=== PATIENT | female | born 1995 | race African-American/Black ===

== ENCOUNTER 2016-07-03 20:31 | Emergency (ER) | payer OTHER ==
[~2016-07-03] VITALS: Ht 157.5 cm; Wt 106.1 kg
[~2016-07-03 20:31] MED LIST: ACET325T9 PO; ALBU8.5H6 IH; AMOX1TAB61 PO; ERYT1OIN6 OD; FLUT10.6 IH; METH-37 PO; MONT10TA6 PO; NITR100C PO; PRED20TA PO; PREN1TAB99 PO; PROAIR HFA8.5 GM INH; TRAM-29 PO
[2016-07-03 20:58] VITALS: BP 166/107
[2016-07-03] MEDS ORDERED: CYCL10TA2 PO (21:11)
--- NOTE | 2016-07-03 21:12 | PHYS DOC ---
Past Medical History Past Medical History: Asthma Additional Past Medical Histor: carpal tunnel Past Surgical History: Other Additional Past Surgical Histo: RIGHT ANKLE SURGERY - FRACTURE 2013 Alcohol Use: None Drug Use: None Adult General Chief Complaint Chief Complaint: MUSCLE SPASM/CR[facility] HPI Patient is a 21 year old female presents emergency department stating that she' s been having back pain on and off for the last 3 years. She states that over the weekend she was lifting and moving things when she developed increased upper back pain or lower back pain. She denies any urinary frequency urgency pain with urination. She denies any numbness or tingling into her lower extremities. Patient states she is taken Aleve on Friday with minimal relief. Patient also states her menstrual periods started on Friday. She denies any chances of being . Patient denies any injury or trauma to her back. Review of Systems Review of Systems Constitutional: Denies fever or chills [] Eyes: Denies change in visual acuity, redness, or eye pain [] HENT: Denies nasal congestion or sore throat [] Respiratory: Denies cough or shortness of breath [] Cardiovascular: No additional information not addressed in HPI [] GI: Denies abdominal pain, nausea, vomiting, bloody stools or diarrhea [] : Denies dysuria or hematuria [] Musculoskeletal: back pain denies joint pain [] Integument: Denies rash or skin lesions [] Neurologic: Denies headache, focal weakness or sensory changes [] Allergies Allergies Allergies Coded Allergies Type Severity Reaction Last Updated Verified acetaminophen Allergy Intermediate Hives 09/20/14 Yes Physical Exam Physical Exam Constitutional: Well developed, well nourished, no acute distress, non-toxic appearance. [] HENT: Normocephalic, atraumatic, bilateral external ears normal, oropharynx moist, no oral exudates, nose normal. [] Eyes: PERRLA, EOMI, conjunctiva normal, no discharge. [] Neck: Normal range of motion, no tenderness, supple, no stridor. [] Cardiovascular:Heart rate regular rhythm, no murmur [] Lungs & Thorax: Bilateral breath sounds clear to auscultation [] Skin: Warm, dry, no erythema, no rash. [] Back: No cervical spine, thoracic spine or lumbar spine tenderness, no deformities no step-offs or crepitus noted. Patient did have tenderness in the bilateral upper back area in bilateral lower back area. Extremities: No tenderness, no cyanosis, no clubbing, ROM intact, no edema. Patient with equal strength to bilateral lower extremities. Neurologic: Alert and oriented X 3, normal motor function, normal sensory function, no focal deficits noted. Patient able to ambulate with a good steady gait Psychologic: Affect normal, judgement normal, mood normal. [] Current Patient Data Vital Signs Vital Signs Date Time Temp Pulse Resp B/P Pulse Ox O2 Delivery O2 Flow Rate FiO2 07/03/16 20:58 98.0 65 20 97 Room Air 98.0 EKG EKG [] Radiology/Procedures Radiology/Procedures [] Course & Med Decision Making Course & Med Decision Making Pertinent Labs and Imaging studies reviewed. (See chart for details) Patient will be discharged home in stable condition. Recommended Aleve 1 tablet twice a day for pain and discomfort. She'll be provided with Flexeril which she was instructed to not take if she needs to be alert and oriented. Also recommended ice packs on 20 minutes off 20 minutes several times a day. She is unable to tolerate ice she may use warm moist packs. Also recommended following up to primary care physician next 7-10 days. Signs symptoms to return back to emergency department as been provided. [] Dragon Disclaimer Dragon Disclaimer This electronic medical record was generated, in whole or in part, using a voice recognition dictation system. Departure Departure Impression: Primary Impression: Back spasm Disposition: 01 HOME, SELF-CARE Condition: STABLE Referrals: NO PCP (PCP) Patient Instructions: Back Pain, Adult, [id number] Additional Instructions: Activity as tolerated. Aleve 1 tablet twice a day for pain and discomfort. They sure you when taking this medication to prevent upset stomach. If he did develop an upset stomach stopped taking. Flexeril will cause drowsiness do not take any be alert and oriented. Ice packs on 20 minutes off 20 minutes several times a day. Unable to tolerate ice she may use warm moist packs. Follow-up through primary care physician next 7-10 days. Return back to emergency department for signs and symptoms of become worse. Scripts Cyclobenzaprine Hcl 10 Mg [id number] Mg PO TID #20 TAB Prov:JAIMEE PROCTOR NP 07/03/16 JAIMEE PROCTOR NP Jul 03, 2016 21:12
== END 2016-07-03 21:22 | disposition home or self-care (01) ==
LOC: ER 20:31
DX: M62.830 Muscle spasm of back (principal); J45.909 Unspecified asthma, uncomplicated; G56.00 Carpal tunnel syndrome, unspecified upper limb; Z88.6 Allergy status to analgesic agent
CPT/HCPCS: 99283

== ENCOUNTER 2016-07-27 03:45 | Emergency (ER) | payer OTHER ==
[~2016-07-27] VITALS: Ht 154.9 cm; Wt 104.3 kg
[~2016-07-27 03:45] MED LIST changes: +CYCL10TA2 PO
[2016-07-27 04:05] VITALS: BP 142/96
[2016-07-27] MEDS ORDERED: CETIRIZINE HCL 10 MG TABLET. PO ONE (04:45)
[2016-07-27] MEDS ORDERED: BENZONATATE 100 MG CAPSULE. PO ONE (04:45)
--- NOTE | 2016-07-27 05:06 | PHYS DOC ---
Past Medical History Past Medical History: Asthma Additional Past Medical Histor: carpal tunnel Past Surgical History: Other Additional Past Surgical Histo: RIGHT ANKLE SURGERY - FRACTURE 2013 Alcohol Use: None Drug Use: None Adult General Chief Complaint Chief Complaint: FLU SYMPTOM HPI HPI Patient is a 21 year old female who presents with cough and congestion. Patient reports she started feeling a little achy on Friday morning and by Friday was coughing up green phlegm. She also reports having chills. She has not taken anything for symptoms. No other acute complaints. Review of Systems Review of Systems Constitutional: Chills Respiratory: Productive cough. Denies shortness of breath Cardiovascular: Denies chest pain GI: Denies abdominal pain, nausea, vomiting, or diarrhea Musculoskeletal: Body aches Neurologic: Denies headache, focal weakness or sensory changes Current Medications Current Medications Current Medications Medications (Trade) Dose Ordered Sig/Juani Start Time Stop Time Status Last Admin Dose Admin Benzonatate (Tessalon Perle) 100 mg 1X ONCE 07/27/16 04:45 07/27/16 04:55 DC 07/27/16 04:50 100 MG Cetirizine HCl (Zyrtec) 10 mg 1X ONCE 07/27/16 04:45 07/27/16 04:55 DC 07/27/16 04:50 10 MG Allergies Allergies Allergies Coded Allergies Type Severity Reaction Last Updated Verified acetaminophen Allergy Intermediate Hives 09/20/14 Yes Physical Exam Physical Exam Constitutional: Well developed, well nourished, no acute distress, non-toxic appearance. [] HENT: Normocephalic, atraumatic, bilateral external ears normal, oropharynx moist, no oral exudates, nose normal. [] Eyes: PERRLA, EOMI, conjunctiva normal, no discharge. [] Neck: Normal range of motion, no tenderness, supple, no stridor. [] Cardiovascular:Heart rate regular rhythm, no murmur [] Lungs & Thorax: Bilateral breath sounds clear to auscultation [] Abdomen: Bowel sounds normal, soft, no tenderness, no masses, no pulsatile masses. [] Skin: Warm, dry, no erythema, no rash. [] Back: No tenderness, no CVA tenderness. [] Extremities: No tenderness, no cyanosis, no clubbing, ROM intact, no edema. [] Neurologic: Alert and oriented X 3, normal motor function, normal sensory function, no focal deficits noted. [] Psychologic: Affect normal, judgement normal, mood normal. [] Current Patient Data Vital Signs Vital Signs Date Time Temp Pulse Resp B/P Pulse Ox O2 Delivery O2 Flow Rate FiO2 07/27/16 04:05 98.1 91 20 99 Room Air 98.1 EKG EKG [] Radiology/Procedures Radiology/Procedures CXR (my read): No acute abnormality Course & Med Decision Making Course & Med Decision Making Pertinent Labs and Imaging studies reviewed. (See chart for details) Patient is 21-year-old female who presents with chills, aches, productive cough. Likely viral illness versus allergies. Dose of Tessalon as well as cetirizine ordered for relief of symptoms. Chest x-ray okay per my read. Discussed results with patient. Will discharge home with instructions for follow -up and return precautions. Dragon Disclaimer Dragon Disclaimer This electronic medical record was generated, in whole or in part, using a voice recognition dictation system. Departure Departure Impression: Primary Impression: Productive cough Disposition: 01 HOME, SELF-CARE Condition: STABLE Referrals: ROCÍO XIONG MD (PCP) Patient Instructions: Allergies, Generic, Cough, Adult, Upper Respiratory Infection, Adult Additional Instructions: Thank you for allowing us to provide care today in the Emergency Department. Take the provided medication as directed. Schedule a follow up appointment with your primary care doctor. Return promptly to the Emergency Department if you develop any new or concerning symptoms. Scripts Cetirizine Hcl 10 Mg [id number] Mg PO DAILY #14 Prov:STEPHEN BLACKWELL MD 07/27/16 Benzonatate (Tessalon Perle)100 Mg [id number] Mg PO TID PRN COUGH #15 CAP Prov:STEPHEN BLACKWELL MD 07/27/16 STEPHEN BLACKWELL MD Jul 27, 2016 05:06
[2016-07-27] MEDS ORDERED: CETI10TA16 PO (05:11)
[2016-07-27] MEDS ORDERED: BENZ100C PO (05:11)
--- NOTE | 2016-07-27 07:37 | RAD ---
EXAM: Chest, 2 views. HISTORY: Cough. COMPARISON: 03/01/2016. FINDINGS: Frontal and lateral views of the chest are obtained. There is no infiltrate, effusion or pneumothorax. The heart is normal in size. IMPRESSION: No acute pulmonary finding.
== END 2016-07-27 05:20 | disposition home or self-care (01) ==
LOC: ER 03:45
DX: R05 Cough (principal); R09.81 Nasal congestion; R68.83 Chills (without fever); J45.909 Unspecified asthma, uncomplicated; G56.00 Carpal tunnel syndrome, unspecified upper limb; Z88.6 Allergy status to analgesic agent
CPT/HCPCS: 71020; 99284

== ENCOUNTER 2016-09-23 11:07 | Emergency (ER) | payer OTHER ==
[~2016-09-23 11:07] MED LIST changes: +BENZ100C PO; +CETI10TA16 PO
--- NOTE | 2016-09-23 13:25 | PHYS DOC ---
Past Medical History Past Medical History: Asthma Additional Past Medical Histor: carpal tunnel Past Surgical History: Other Additional Past Surgical Histo: RIGHT ANKLE SURGERY - FRACTURE 2013 Alcohol Use: None Drug Use: None Adult General Chief Complaint Chief Complaint: ABDOMINAL PAIN HPI HPI Patient is a 21 year old female who presents with with rectal bleeding and generalized mild abdominal pain for the past couple days. Patient states for the past 2 months she's had intermittent rectal bleeding and has followed up with her PCP twice as has been put on medication for ulcers. Patient denies any chest pain or shortness of breath. Findings: Mild generalized abdominal tenderness with bowel sounds are normal for quadrants and soft Patient refuses rectal exam ED course: Patient was seen and evaluated in emergency room, CBC CMP, lipase, UA, urine , CT of abdomen and pelvis with contrast ordered 1514: Exam result explained with the patient who states she is ready go home and feels much better. Patient still denied rectal exam. Recommend patient follow PCP for upper and lower GI scope and return if symptoms get worse. Pertinent findings: Hemoglobin 12 CT scan abdomen and pelvis no acute disease MDM: After reviewing the chart, CC/HPI/PMH, physical exam, lab results, radiological results, I do not be the patient has intra-abdominal emergency or urgent further workup and admission at this time. I do not be the patient has significant rectal bleed warranting emergent blood transfusion. I recommended the patient follow up with her PCP for an upper or lower GI scope. Recommended the bleeding gets worse to return to emergency room. Patient is stable to be discharged and patient is comfortable being discharged home. Additional verbal discharge instructions were provided to the patient and that if symptoms get worse or any new symptoms arise that are worrisome to the patient she is to return to the emergency room immediately Review of Systems Review of Systems Constitutional: Denies fever or chills [] Eyes: Denies change in visual acuity, redness, or eye pain [] HENT: Denies nasal congestion or sore throat [] Respiratory: Denies cough or shortness of breath [] Cardiovascular: No additional information not addressed in HPI [] GI: Rectal bleeding [] : Denies dysuria or hematuria [] Musculoskeletal: Denies back pain or joint pain [] Integument: Denies rash or skin lesions [] Neurologic: Denies headache, focal weakness or sensory changes [] Endocrine: Denies polyuria or polydipsia [] Current Medications Current Medications Current Medications Medications (Trade) Dose Ordered Sig/Juani Start Time Stop Time Status Last Admin Dose Admin Info (Do NOT chart on this entry -- for MONITORING) 1 each PRN DAILY PRN 09/23/16 13:45 09/25/16 13:44 Iohexol (Omnipaque 300 Mg/ml) 75 ml 1X ONCE 09/23/16 13:30 09/23/16 13:31 DC 09/23/16 13:58 75 ML Allergies Allergies Allergies Coded Allergies Type Severity Reaction Last Updated Verified acetaminophen Allergy Intermediate Hives 09/20/14 Yes Physical Exam Physical Exam Constitutional: Well developed, well nourished, no acute distress, non-toxic appearance. [] HENT: Normocephalic, atraumatic, bilateral external ears normal, oropharynx moist, no oral exudates, nose normal. [] Eyes: PERRLA, EOMI, conjunctiva normal, no discharge. [] Neck: Normal range of motion, supple, no stridor. [] Cardiovascular:Heart rate regular rhythm, no murmur [] Lungs & Thorax: Bilateral breath sounds clear to auscultation [] Abdomen: Bowel sounds normal, soft, mild generalized tenderness, no masses, no pulsatile masses. [] Skin: Warm, dry, no erythema, no rash. [] Back: No tenderness, no CVA tenderness. [] Extremities: No tenderness, no cyanosis, no clubbing, ROM intact, no edema. [] Neurologic: Alert and oriented X 3, normal motor function, normal sensory function, no focal deficits noted. [] Psychologic: Affect normal, judgement normal, mood normal. [] Current Patient Data Vital Signs Vital Signs Date Time Temp Pulse Resp B/P (MAP) Pulse Ox O2 Delivery O2 Flow Rate FiO2 09/23/16 11:24 97.9 110 16 98 Room Air 97.9 Lab Values Laboratory Tests Test 09/23/16 12:37 09/23/16 13:25 POC Urine HCG, Qualitative Hcg negative (Negative) White Blood Count 7.8 x10^3/uL (4.0-11.0) Red Blood Count 4.36 x10^6/uL (3.50-5.40) Hemoglobin 12.1 g/dL (12.0-15.5) Hematocrit 36.6 % (36.0-47.0) Mean Corpuscular Volume 84 fL (79-100) Mean Corpuscular Hemoglobin 28 pg (25-35) Mean Corpuscular Hemoglobin Concent 33 g/dL (31-37) Red Cell Distribution Width 15.4 % (11.5-14.5) H Platelet Count 272 x10^3/uL (140-400) Neutrophils (%) (Auto) 69 % (31-73) Lymphocytes (%) (Auto) 21 % (24-48) L Monocytes (%) (Auto) 8 % (0-9) Eosinophils (%) (Auto) 1 % (0-3) Basophils (%) (Auto) 1 % (0-3) Neutrophils # (Auto) 5.4 x10^3uL (1.8-7.7) Lymphocytes # (Auto) 1.6 x10^3/uL (1.0-4.8) Monocytes # (Auto) 0.6 x10^3/uL (0.0-1.1) Eosinophils # (Auto) 0.1 x10^3/uL (0.0-0.7) Basophils # (Auto) 0.1 x10^3/uL (0.0-0.2) Urine Collection Type Unknown Urine Color Yellow Urine Clarity Clear Urine pH 6.0 Urine Specific [place] 1.025 Urine Protein Negative mg/dL (NEG-TRACE) Urine Glucose (UA) Negative mg/dL (NEG) Urine Ketones (Stick) Negative mg/dL (NEG) Urine Blood Small (NEG) Urine Nitrite Negative (NEG) Urine Bilirubin Negative (NEG) Urine Urobilinogen Dipstick 0.2 mg/dL (0.2 mg/dL) Urine Leukocyte Esterase Small (NEG) Urine RBC 0 /HPF (0-2) Urine WBC 1-4 /HPF (0-4) Urine Squamous Epithelial Cells Mod /LPF Urine Bacteria Few /HPF (0-FEW) Urine Mucus Mod /LPF Sodium Level 145 mmol/L (136-145) Potassium Level 3.9 mmol/L (3.5-5.1) Chloride Level 108 mmol/L (98-107) H Carbon Dioxide Level 29 mmol/L (21-32) Anion Gap 8 (6-14) Blood Urea Nitrogen 9 mg/dL (7-20) Creatinine 0.8 mg/dL (0.6-1.0) Estimated GFR (Cockcroft-Gault) 107.6 BUN/Creatinine Ratio 11 (6-20) Glucose Level 82 mg/dL (70-99) Calcium Level 8.5 mg/dL (8.5-10.1) Total Bilirubin 0.2 mg/dL (0.2-1.0) Aspartate Amino Transferase (AST) 19 U/L (15-37) Alanine Aminotransferase (ALT) 35 U/L (14-59) Alkaline Phosphatase 47 U/L (46-116) Total Protein 7.0 g/dL (6.4-8.2) Albumin 3.3 g/dL (3.4-5.0) L Albumin/Globulin Ratio 0.9 (1.0-1.7) L Lipase 128 U/L (73-393) Laboratory Tests 09/23/16 13:25 Laboratory Tests 09/23/16 13:25 EKG EKG [] Radiology/Procedures Radiology/Procedures CT findings Impression: 1. Contracted gallbladder. 2. Small umbilical hernia. 3. No abdominal or pelvic mass or other acute findings noted.[] Course & Med Decision Making Course & Med Decision Making Pertinent Labs and Imaging studies reviewed. (See chart for details) [] Dragon Disclaimer Dragon Disclaimer This electronic medical record was generated, in whole or in part, using a voice recognition dictation system. Departure Departure Impression: Primary Impression: Rectal bleeding Additional Impression: Abdominal pain Disposition: HOME, SELF-CARE Condition: IMPROVED Referrals: ROCÍO XIONG MD (PCP) Patient Instructions: Gastrointestinal Bleeding Additional Instructions: Least follow with her PCP in one to 2 days Problem Qualifiers Additional Impression: Abdominal pain Abdominal location: generalized Qualified Codes: R10.84 - Generalized abdominal pain SAMEER LOPEZ DO September 23, 2016 13:25
[2016-09-23] MEDS ORDERED: IOHEXOL 300 MG/ML 75 ML VIAL IV ONE (13:30)
[2016-09-23 13:38] LABS: BASO # 0.1 x10^3/uL (0.0-0.2); BASO % 1 % (0-3); EOS % 1 % (0-3); HEMATOCRIT 36.6 % (36.0-47.0); HEMOGLOBIN 12.1 g/dL (12.0-15.5); LYMPH # 1.6 x10^3/uL (1.0-4.8); LYMPH % 21 % (24-48); MEAN CORPUSCULAR HEMOGLOBIN 28 pg (25-35); MEAN CORPUSCULAR HGB CONC 33 g/dL (31-37); MEAN CORPUSCULAR VOLUME 84 fL (79-100); MONO % 8 % (0-9); NEUT % 69 % (31-73); PLATELET COUNT 272 x10^3/uL (140-400); RED BLOOD COUNT 4.36 x10^6/uL (3.50-5.40); RED CELL DISTRIBUTION WIDTH 15.4 % (11.5-14.5); WHITE BLOOD COUNT 7.8 x10^3/uL (4.0-11.0)
[2016-09-23 13:39] LABS: BILIRUBIN,URINE NEGATIVE (NEG); GLUCOSE,URINE NEGATIVE (NEG); NITRITE,URINE NEGATIVE (NEG); PROTEIN,URINE NEGATIVE (NEG-TRACE); UROBILINOGEN,URINE 0.2 mg/dL (0.2 mg/dL)
[2016-09-23] MEDS ORDERED: CONTRAST GIVEN MC PRN (13:45)
[2016-09-23 13:48] LABS: BACTERIA,URINE FEW /HPF (0-FEW); CALCIUM 8.5 mg/dL (8.5-10.1); CREATININE 0.8 mg/dL (0.6-1.0); GFR 107.6; POTASSIUM 3.9 mmol/L (3.5-5.1); RBC,URINE 0 /HPF (0-2); SQUAMOUS EPITHELIAL CELL,UR MOD /LPF
[2016-09-23 13:51] LABS: ALBUMIN 3.3 g/dL (3.4-5.0); ALBUMIN/GLOBULIN RATIO 0.9 (1.0-1.7); TOTAL BILIRUBIN 0.2 mg/dL (0.2-1.0)
--- NOTE | 2016-09-23 14:19 | RAD ---
CT abdomen and pelvis with contrast. History: Abdominal pain CT scan of the abdomen and pelvis was done using 75 mL Omnipaque 300 contrast. Lung bases are clear. There is no effusion. Liver is normal in appearance. Spleen and adrenal glands are unremarkable. There is no mass or hydronephrosis or calculus in the kidneys. Pancreas is normal. There is no adenopathy. Bowel pattern is normal without bowel obstruction. Appendix is normal. There is a small umbilical hernia. Uterus and ovaries are normal. There is no ascites. Gallbladder is contracted. Impression: 1. Contracted gallbladder. 2. Small umbilical hernia. 3. No abdominal or pelvic mass or other acute findings noted. One or more of the following individualized dose reduction techniques were utilized for this examination: 1. Automated exposure control 2. Adjustment of the mA and/or kV according to patient size 3. Use of iterative reconstruction technique
[2016-09-23 17:02] VITALS: BP 117/70
== END 2016-09-23 15:30 | disposition home or self-care (01) ==
LOC: ER 11:07
DX: K62.5 Hemorrhage of anus and rectum (principal); J45.909 Unspecified asthma, uncomplicated; Z88.6 Allergy status to analgesic agent
CPT/HCPCS: 36415; 74177; 80053; 81001; 83690; 84703; 85027; 87086; 99285; Q9967; 81025

== ENCOUNTER 2016-11-13 21:37 | Emergency (ER) | payer OTHER ==
[~2016-11-13] VITALS: Ht 154.9 cm; Wt 105.2 kg
[~2016-11-13 21:37] MED LIST changes: -TRAM-29 PO; +TRAM-48 PO
[2016-11-13 22:01] LABS: BILIRUBIN,URINE NEGATIVE (NEG); GLUCOSE,URINE NEGATIVE (NEG); NITRITE,URINE NEGATIVE (NEG); PH,URINE 5.5; PROTEIN,URINE NEGATIVE (NEG-TRACE); UROBILINOGEN,URINE 0.2 mg/dL (0.2 mg/dL)
--- NOTE | 2016-11-13 22:03 | PHYS DOC ---
Past Medical History Past Medical History: Asthma, GERD Additional Past Medical Histor: carpal tunnel Past Surgical History: Other Additional Past Surgical Histo: RIGHT ANKLE SURGERY - FRACTURE 2013 Alcohol Use: None Drug Use: None Adult General Chief Complaint Chief Complaint: ABDOMINAL PAIN HPI HPI Patient is a 21 year old female who presents with abdominal pain. She states pain is periumbilical and associated with burning acid. Similar pain to her GERD since --years. Recently worse and followed by PCP Dr. Xiong who put her on Ranitidine 07/12 and has had recent follow up 11/08/[address] on another "stomach med but doesn't know the name. He told her she will need to see a GI physician for scope but doesn't have appointment yet. Pt at work tonight and worse Today vomited 3 times and 2 more times at home. NO hematemesis, no coffee ground. NO melena or hematochezia. Pt states she has had diarrhea X2 today. no fever or chills, no recent antibiotics, travel out of the country or camping. Pain is periumbilical and epigastric with rating now of 5/10. Pt drove to ER and is with young daughter in room. LMP 10/13/16 Review of Systems Review of Systems Constitutional: Denies fever or chills Eyes: Denies change in visual acuity, redness, or eye pain HENT: Denies nasal congestion or sore throat Respiratory: Denies cough or shortness of breath Cardiovascular: No additional information not addressed in HPI GI: Yes to abdominal pain, +N/V, + diarrhea no blood : Denies dysuria or hematuria Musculoskeletal: Denies back pain or joint pain Integument: Denies rash or skin lesions Neurologic: Denies headache, focal weakness or sensory changes Current Medications Current Medications Current Medications Medications (Trade) Dose Ordered Sig/Juani Start Time Stop Time Status Last Admin Dose Admin Famotidine (Pepcid) 20 mg 1X ONCE 11/13/16 23:00 11/13/16 23:01 DC 11/13/16 22:53 20 MG Info (Do NOT chart on this entry -- for MONITORING) 1 each PRN DAILY PRN 11/13/16 23:00 11/14/16 01:02 DC Iohexol (Omnipaque 300 Mg/ml) 75 ml 1X ONCE 11/13/16 23:30 11/13/16 23:31 DC Ondansetron HCl (Zofran) 4 mg 1X ONCE 11/13/16 22:30 11/13/16 22:31 DC 11/13/16 22:10 4 MG Sodium Chloride 1,000 ml @ 1,000 mls/hr 1X ONCE 11/13/16 23:00 11/13/16 23:59 DC 11/13/16 22:54 1,000 MLS/HR Allergies Allergies Allergies Coded Allergies Type Severity Reaction Last Updated Verified acetaminophen Allergy Intermediate Hives 09/20/14 Yes Physical Exam Physical Exam Constitutional: Well developed, well nourished, no acute distress, non-toxic appearance. HENT: Normocephalic, atraumatic, bilateral external ears normal, oropharynx moist, no oral exudates, nose normal. Eyes: PERRL, EOMI, conjunctiva normal, no discharge, sclera anicteric Neck: Normal range of motion, no tenderness, supple, no stridor. Cardiovascular:Heart rate regular rhythm, no murmur Lungs & Thorax: Bilateral breath sounds clear to auscultation Abdomen: Bowel sounds normal, soft, moderate epigastric tenderness, RUQ and LUQ , no masses, no pulsatile masses, no guarding or rebound Skin: Warm, dry, no erythema, no rash. Back: No tenderness, no CVA tenderness. Extremities: No tenderness, no cyanosis, no clubbing, ROM intact, no edema. Neurologic: Alert and oriented X 3, normal motor function, normal sensory function, no focal deficits noted. Psychologic: Affect normal, judgement normal, mood normal. Current Patient Data Vital Signs Vital Signs Date Time Temp Pulse Resp B/P (MAP) Pulse Ox O2 Delivery O2 Flow Rate FiO2 11/14/16 00:18 92 95/50 (65) 11/13/16 22:53 20 Room Air 11/13/16 21:40 97.8 100 97.8 Lab Values Laboratory Tests Test 11/13/16 21:01 11/13/16 21:40 11/13/16 21:58 POC Urine HCG, Qualitative Hcg negative (Negative) Urine Collection Type Unknown Urine Color Yellow Urine Clarity Clear Urine pH 5.5 Urine Specific [place] >=1.030 Urine Protein Negative mg/dL (NEG-TRACE) Urine Glucose (UA) Negative mg/dL (NEG) Urine Ketones (Stick) Negative mg/dL (NEG) Urine Blood Negative (NEG) Urine Nitrite Negative (NEG) Urine Bilirubin Negative (NEG) Urine Urobilinogen Dipstick 0.2 mg/dL (0.2 mg/dL) Urine Leukocyte Esterase Negative (NEG) Urine RBC 0 /HPF (0-2) Urine WBC 1-4 /HPF (0-4) Urine Squamous Epithelial Cells Few /LPF Urine Bacteria Few /HPF (0-FEW) Urine Mucus Marked /LPF White Blood Count 12.2 x10^3/uL (4.0-11.0) H Red Blood Count 4.38 x10^6/uL (3.50-5.40) Hemoglobin 12.0 g/dL (12.0-15.5) Hematocrit 35.6 % (36.0-47.0) L Mean Corpuscular Volume 81 fL (79-100) Mean Corpuscular Hemoglobin 27 pg (25-35) Mean Corpuscular Hemoglobin Concent 34 g/dL (31-37) Red Cell Distribution Width 15.3 % (11.5-14.5) H Platelet Count 341 x10^3/uL (140-400) Neutrophils (%) (Auto) 70 % (31-73) Lymphocytes (%) (Auto) 20 % (24-48) L Monocytes (%) (Auto) 8 % (0-9) Eosinophils (%) (Auto) 1 % (0-3) Basophils (%) (Auto) 1 % (0-3) Neutrophils # (Auto) 8.6 x10^3uL (1.8-7.7) H Lymphocytes # (Auto) 2.5 x10^3/uL (1.0-4.8) Monocytes # (Auto) 0.9 x10^3/uL (0.0-1.1) Eosinophils # (Auto) 0.1 x10^3/uL (0.0-0.7) Basophils # (Auto) 0.1 x10^3/uL (0.0-0.2) Sodium Level 140 mmol/L (136-145) Potassium Level 4.2 mmol/L (3.5-5.1) Chloride Level 103 mmol/L (98-107) Carbon Dioxide Level 25 mmol/L (21-32) Anion Gap 12 (6-14) Blood Urea Nitrogen 17 mg/dL (7-20) Creatinine 0.9 mg/dL (0.6-1.0) Estimated GFR (Cockcroft-Gault) 93.9 BUN/Creatinine Ratio 19 (6-20) Glucose Level 98 mg/dL (70-99) Calcium Level 9.3 mg/dL (8.5-10.1) Total Bilirubin 0.1 mg/dL (0.2-1.0) L Aspartate Amino Transferase (AST) 23 U/L (15-37) Alanine Aminotransferase (ALT) 30 U/L (14-59) Alkaline Phosphatase 60 U/L (46-116) Total Protein 7.8 g/dL (6.4-8.2) Albumin 3.8 g/dL (3.4-5.0) Albumin/Globulin Ratio 1.0 (1.0-1.7) Lipase 126 U/L (73-393) Laboratory Tests 11/13/16 21:58 Laboratory Tests 11/13/16 21:58 EKG EKG [] Radiology/Procedures Radiology/Procedures PATIENT: FRANK LOPEZ ACCOUNT: [id number] : 1995 LOCATION: ER AGE: 21 SEX: F EXAM STATUS: REG ER ORD. PHYSICIAN: ELVIS ZHANG MD REASON: abdominal pain PROCEDURE: CT ABD PELV W/ IV CONTRST ONLY PQRS Compliance Statement: One or more of the following individualized dose reduction techniques were utilized for this examination: 1. Automated exposure control 2. Adjustment of the mA and/or kV according to patient size 3. Use of iterative reconstruction technique CT ABD PELV W/ IV CONTRST ONLY Clinical Indication: n/v/d and mid abd pain x 3 days, Comparison: CT abdomen and pelvis with contrast September 23, 2016. Technique: Helical CT imaging of the abdomen and pelvis is performed after 75 cc Omnipaque 300 IV contrast. Oral contrast not given. Findings: Lung bases clear. Cardiac size normal. Gallbladder is contracted. Liver, spleen, pancreas, adrenal glands, abdominal aorta, and kidneys are normal. Evaluation of bowel may be limited without oral contrast. Stomach unremarkable. The appendix is normal. No dilated small bowel. No colon wall thickening. Subcentimeter mesenteric lymph nodes. No adenopathy. No abdominal free fluid. Uterus unremarkable. Urinary bladder is normal. There is a contraceptive ring in the vagina. No pelvic free fluid. Ovaries are symmetric. No acute bone abnormality. IMPRESSION: No acute abdominal or pelvic abnormality. Electronically signed by: Gaurav Ratliff MD (11/13/2016 11:38 PM) [facility] DICTATED and SIGNED BY: GAURAV RATLIFF MD DATE: 11/13/16 2026 CC: ELVIS ZHANG MD; ROCÍO XIONG MD ~ [] Course & Med Decision Making Course & Med Decision Making Pertinent Labs and Imaging studies reviewed. (See chart for details) Pt had no diarrhea here in ER. Pt urine showed elevated specific gravity consistent with some dehydration. Pt given IV PROtonix still some pain but CT no obstruction, normal appendix no acute inflammation. Discussed she likely needs EGD and maybe colonoscopy. Don;t want to give NSAIDS for pain because of stomach issues and worry narcotics will only cause constipation. Pt drove to ER Gave pt work excuse to follow up with Dr. Xiong tomorrow to try to expedite GI eval. Felipa Disclaimer Felipa Disclaimer This electronic medical record was generated, in whole or in part, using a voice recognition dictation system. Departure Departure Impression: Primary Impression: Abdominal pain Disposition: 01 HOME, SELF-CARE Condition: STABLE Referrals: ROCÍO XIONG MD (PCP) Problem Qualifiers Primary Impression: Abdominal pain Abdominal location: epigastric Qualified Codes: R10.13 - Epigastric pain ELVIS ZHANG MD Nov 13, 2016 22:03
[2016-11-13 22:05] LABS: BASO # 0.1 x10^3/uL (0.0-0.2); BASO % 1 % (0-3); EOS % 1 % (0-3); HEMATOCRIT 35.6 % (36.0-47.0); LYMPH # 2.5 x10^3/uL (1.0-4.8); LYMPH % 20 % (24-48); MEAN CORPUSCULAR HEMOGLOBIN 27 pg (25-35); MEAN CORPUSCULAR HGB CONC 34 g/dL (31-37); MEAN CORPUSCULAR VOLUME 81 fL (79-100); MONO % 8 % (0-9); NEUT % 70 % (31-73); PLATELET COUNT 341 x10^3/uL (140-400); RED BLOOD COUNT 4.38 x10^6/uL (3.50-5.40); RED CELL DISTRIBUTION WIDTH 15.3 % (11.5-14.5); WHITE BLOOD COUNT 12.2 x10^3/uL (4.0-11.0)
[2016-11-13 22:06] LABS: BACTERIA,URINE FEW /HPF (0-FEW); RBC,URINE 0 /HPF (0-2); SQUAMOUS EPITHELIAL CELL,UR FEW /LPF
[2016-11-13 22:13] LABS: CALCIUM 9.3 mg/dL (8.5-10.1); CREATININE 0.9 mg/dL (0.6-1.0); GFR 93.9; POTASSIUM 4.2 mmol/L (3.5-5.1)
[2016-11-13 22:19] LABS: ALBUMIN 3.8 g/dL (3.4-5.0); TOTAL BILIRUBIN 0.1 mg/dL (0.2-1.0); TOTAL PROTEIN 7.8 g/dL (6.4-8.2)
[2016-11-13] MEDS ORDERED: IV NORMAL SALINE 1000ML BAG 1,000 ML IV SCH (22:30)
[2016-11-13] MEDS ORDERED: ONDANSETRON PF 4 MG/2 ML VIAL. IV ONE (22:30)
[2016-11-13] MEDS ORDERED: IV NORMAL SALINE 1000ML BAG 1,000 ML IV ONE (23:00)
[2016-11-13] MEDS ORDERED: FAMOTIDINE 20 MG/2 ML VIAL IVP ONE (23:00)
[2016-11-13] MEDS ORDERED: CONTRAST GIVEN MC PRN (23:00)
[2016-11-13] MEDS ORDERED: IOHEXOL 300 MG/ML 75 ML VIAL IV ONE (23:30)
--- NOTE | 2016-11-13 23:41 | RAD ---
PQRS Compliance Statement: One or more of the following individualized dose reduction techniques were utilized for this examination: 1. Automated exposure control 2. Adjustment of the mA and/or kV according to patient size 3. Use of iterative reconstruction technique CT ABD PELV W/ IV CONTRST ONLY Clinical Indication: n/v/d and mid abd pain x 3 days, Comparison: CT abdomen and pelvis with contrast September 23, 2016. Technique: Helical CT imaging of the abdomen and pelvis is performed after 75 cc Omnipaque 300 IV contrast. Oral contrast not given. Findings: Lung bases clear. Cardiac size normal. Gallbladder is contracted. Liver, spleen, pancreas, adrenal glands, abdominal aorta, and kidneys are normal. Evaluation of bowel may be limited without oral contrast. Stomach unremarkable. The appendix is normal. No dilated small bowel. No colon wall thickening. Subcentimeter mesenteric lymph nodes. No adenopathy. No abdominal free fluid. Uterus unremarkable. Urinary bladder is normal. There is a contraceptive ring in the vagina. No pelvic free fluid. Ovaries are symmetric. No acute bone abnormality. IMPRESSION: No acute abdominal or pelvic abnormality. Electronically signed by: Gaurav Ratliff MD (11/13/2016 11:38 PM) [facility]
[2016-11-14 00:18] VITALS: BP 95/50
== END 2016-11-14 00:58 | disposition home or self-care (01) ==
LOC: ER 21:37
DX: R10.13 Epigastric pain (principal); R11.2 Nausea with vomiting, unspecified; R19.7 Diarrhea, unspecified; R10.11 Right upper quadrant pain; R10.12 Left upper quadrant pain; E86.0 Dehydration; R10.33 Periumbilical pain; J45.909 Unspecified asthma, uncomplicated; K21.9 Gastro-esophageal reflux disease without esophagitis; Z88.6 Allergy status to analgesic agent
CPT/HCPCS: 36415; 74177; 80053; 81001; 81025; 83690; 85027; 96361; 96374; 96375; 99285; J2405; J7030; S0028

== ENCOUNTER 2017-02-08 03:48 | Emergency (ER) | payer OTHER ==
[~2017-02-08] VITALS: Ht 157.5 cm; Wt 102.5 kg
--- NOTE | 2017-02-08 04:28 | PHYS DOC ---
Past Medical History Past Medical History: Asthma, GERD Additional Past Medical Histor: carpal tunnel Past Surgical History: Other Additional Past Surgical Histo: RIGHT ANKLE SURGERY - FRACTURE 2013 Alcohol Use: Occasionally Drug Use: None Adult General Chief Complaint Chief Complaint: ABDOMINAL PAIN HPI HPI Patient is a 22 year old female who presents with complaint of abdominal pain and vomiting. Patient states that her symptoms started yesterday evening before work. Patient states that she has history of GERD and states that she has an appointment to be seen by child care supervisor in the next 2 days. The patient states that she is currently on Protonix therapy. Patient states that she has not missed any doses of her medication. Patient denies any recent illnesses and has not had any associated fevers. Patient states after waking from her nap prior to going to work she started feeling middle abdominal pain. Patient states that this progressed to burning across the upper portion of her abdomen with increasing nausea. Patient states that she has had vomiting shortly prior to arrival in the emergency department. Patient has not taken any other medications for her symptoms. Patient states that she was trying to eat crackers and drink maggie marjorie to help with her symptoms but stated that this offered no relief. Patient currently rates her pain as 7 out of 10. Review of Systems Review of Systems Constitutional: Denies fever or chills [] Eyes: Denies change in visual acuity, redness, or eye pain [] HENT: Denies nasal congestion or sore throat [] Respiratory: Denies cough or shortness of breath [] Cardiovascular: Denies chest pain or edema[] GI: Abdominal pain, nausea, vomiting, denies bloody stools or diarrhea [] : Denies dysuria or hematuria [] Musculoskeletal: Denies back pain or joint pain [] Integument: Denies rash or skin lesions [] Neurologic: Denies headache, focal weakness or sensory changes [] Current Medications Current Medications Current Medications Medications (Trade) Dose Ordered Sig/Juani Start Time Stop Time Status Last Admin Dose Admin Multi-Ingredient Mouthwash/Gargle (Gi Cocktail Single Dose) 15 ml 1X ONCE 02/08/17 04:30 02/08/17 04:31 DC 02/08/17 04:23 15 ML Ondansetron HCl (Zofran Odt) 4 mg 1X ONCE 02/08/17 04:30 02/08/17 04:31 DC 02/08/17 04:23 4 MG Allergies Allergies Allergies Coded Allergies Type Severity Reaction Last Updated Verified acetaminophen Allergy Intermediate Hives 09/20/14 Yes Physical Exam Physical Exam Constitutional: Well developed, well nourished, no acute distress, non-toxic appearance. [] HENT: Normocephalic, atraumatic, bilateral external ears normal, oropharynx moist, no oral exudates, nose normal. [] Eyes: PERRLA, EOMI, conjunctiva normal, no discharge. [] Neck: Normal range of motion, no tenderness, supple, no stridor. [] Cardiovascular:Heart rate regular rhythm, no murmur [] Lungs & Thorax: Bilateral breath sounds clear to auscultation [] Abdomen: Bowel sounds normal, soft, mild epigastric tenderness to palpation, no masses, no pulsatile masses. [] Skin: Warm, dry, no erythema, no rash. [] Back: No tenderness, no CVA tenderness. [] Extremities: No tenderness, no cyanosis, no clubbing, ROM intact, no edema. [] Neurologic: Alert and oriented X 3, normal motor function, normal sensory function, no focal deficits noted. [] Current Patient Data Vital Signs Vital Signs Date Time Temp Pulse Resp B/P (MAP) Pulse Ox O2 Delivery O2 Flow Rate FiO2 02/08/17 04:05 98.1 97 16 98 Room Air 98.1 Lab Values Laboratory Tests Test 02/08/17 04:00 02/08/17 04:02 Urine Collection Type Unknown Urine Color Yellow Urine Clarity Clear Urine pH 5.5 Urine Specific [place] >=1.030 Urine Protein Negative mg/dL (NEG-TRACE) Urine Glucose (UA) Negative mg/dL (NEG) Urine Ketones (Stick) Negative mg/dL (NEG) Urine Blood Negative (NEG) Urine Nitrite Negative (NEG) Urine Bilirubin Small (NEG) Urine Urobilinogen Dipstick 0.2 mg/dL (0.2 mg/dL) Urine Leukocyte Esterase Trace (NEG) Urine RBC 3-5 /HPF (0-2) Urine WBC 5-10 /HPF (0-4) Urine Squamous Epithelial Cells Few /LPF Urine Bacteria Few /HPF (0-FEW) Urine Mucus Marked /LPF POC Urine HCG, Qualitative Hcg negative (Negative) EKG EKG Not performed[] Radiology/Procedures Radiology/Procedures Not performed[] Course & Med Decision Making Course & Med Decision Making Pertinent Labs and Imaging studies reviewed. (See chart for details) The patient was given Zofran and a GI cocktail in the emergency department. Patient reported improvement in symptoms. The patient's symptoms appear to be consistent with an exacerbation of esophageal reflux disease. Vital signs are stable at this time. The patient has a follow-up appointment in 2 days with gastroenterology. Advised to continue with this appointment as scheduled. Patient prescribed Zofran to use as needed for nausea. Advised return emergency department for any worsening symptoms. Patient voiced understanding and in agreement with treatment plan. Dragon Disclaimer Dragon Disclaimer This electronic medical record was generated, in whole or in part, using a voice recognition dictation system. Departure Departure Impression: Primary Impression: Abdominal pain Additional Impression: Nausea and vomiting Disposition: 01 HOME, SELF-CARE Condition: IMPROVED Referrals: ROCÍO XIONG MD (PCP) Patient Instructions: Abdominal Pain, Gastroesophageal Reflux Disease, Adult, Nausea and Vomiting Additional Instructions: Follow-up with your child care supervisor in 2 days as scheduled. Return to the emergency department for any worsening symptoms. Scripts Ondansetron (ZOFRAN ODT) 4 Mg Tab.rapdis 1 TAB SL Q8HRS Y for NAUSEA/VOMITING, #15 TAB Prov: CHLOE SÁNCHEZ MD 02/08/17 Problem Qualifiers Primary Impression: Abdominal pain Abdominal location: epigastric Qualified Codes: R10.13 - Epigastric pain Additional Impression: Nausea and vomiting Vomiting type: unspecified Vomiting Intractability: non-intractable Qualified Codes: R11.2 - Nausea with vomiting, unspecified CHLOE SÁNCHEZ MD Feb 08, 2017 04:28
[2017-02-08] MEDS ORDERED: ONDANSETRON ODT 4 MG TAB.RAPDIS. PO ONE (04:30)
[2017-02-08] MEDS ORDERED: LIDO:MAALOX:DONNATAL 1:1:1 15 ML SINGLE DOSE SWSW ONE (04:30)
[2017-02-08 04:39] LABS: BILIRUBIN,URINE SMALL (NEG); GLUCOSE,URINE NEGATIVE (NEG); NITRITE,URINE NEGATIVE (NEG); PH,URINE 5.5; PROTEIN,URINE NEGATIVE (NEG-TRACE); UROBILINOGEN,URINE 0.2 mg/dL (0.2 mg/dL)
[2017-02-08 05:02] LABS: BACTERIA,URINE FEW /HPF (0-FEW); SQUAMOUS EPITHELIAL CELL,UR FEW /LPF
[2017-02-08] MEDS ORDERED: ONDA4TAB10 SL (05:08)
[2017-02-08 05:19] VITALS: BP 194/84
== END 2017-02-08 05:20 | disposition home or self-care (01) ==
LOC: ER 03:48
DX: R10.13 Epigastric pain (principal); R11.2 Nausea with vomiting, unspecified; J45.909 Unspecified asthma, uncomplicated; K21.9 Gastro-esophageal reflux disease without esophagitis; Z88.6 Allergy status to analgesic agent
CPT/HCPCS: 81001; 81025; 87086; 99284; Q0162

== ENCOUNTER → 2017-02-12 | Outpatient (CLI) | payer OTHER ==
[2017-02-08 05:19] VITALS: BP 194/84
[~2017-02-12] VITALS: Ht 157.5 cm; Wt 105.7 kg
[~2017-02-12] MED LIST changes: +ONDA4TAB10 SL; +SINCALIDE 2.1 MCG in IV NORMAL SALINE 50ML 30 ML IV ONE
--- NOTE | 2017-02-12 13:16 | RAD ---
EXAM: Nuclear hepatobiliary scan with ejection fraction. HISTORY: Epigastric pain and nausea. TECHNIQUE: Serial static images are obtained of the liver and biliary system in a frontal projection following IV administration of 5.5 mCi of technetium-99m Choletec. After filling of the gallbladder, 2.1 mcg of sincalide were infused over 30 minutes and dynamic imaging continued over this period. The gallbladder ejection fraction was calculated. FINDINGS: There is prompt hepatic clearance of tracer from the blood pool. There is homogeneous distribution throughout the liver. There is normal filling of the gallbladder and normal emptying into the biliary system and small bowel. The gallbladder ejection fraction is 35.7% (normal >35%). IMPRESSION: 1. Normal but borderline decreased gallbladder ejection fraction.
== END | disposition home or self-care (01) ==
LOC: NM 08:41
PROVIDERS: ATTEND Internal Medicine Gastroenterology
DX: R10.13 Epigastric pain (principal); R11.0 Nausea
CPT/HCPCS: 78226; 96374; 96375; A9537; J2805

== ENCOUNTER 2017-03-31 17:50 | Emergency (ER) | payer OTHER ==
[~2017-03-31] VITALS: Ht 157.5 cm; Wt 104.3 kg
[~2017-03-31 17:50] MED LIST changes: +CYCL5TAB PO; +IBUP-1060 PO; -SINCALIDE 2.1 MCG in IV NORMAL SALINE 50ML 30 ML IV ONE
--- NOTE | 2017-03-31 18:59 | PHYS DOC ---
Past Medical History Past Medical History: Asthma, GERD Additional Past Medical Histor: carpal tunnel Past Surgical History: Other Additional Past Surgical Histo: RIGHT ANKLE SURGERY - FRACTURE 2013 Alcohol Use: None Drug Use: None Adult General Chief Complaint Chief Complaint: NAUSEA/VOMITING/DIARRHA HPI HPI Patient is a 22 year old female with a history of asthma who presents today complaining of nausea vomiting and diarrhea that began 3 days ago. Patient states she had her gallbladder removed 6 days ago. Patient states that general surgeon send her to the ED to be evaluated for dehydration. Patient denies any abdominal pain. Denies any hematemesis or melena. Review of Systems Review of Systems Constitutional: Denies fever or chills [] Eyes: Denies change in visual acuity, redness, or eye pain [] HENT: Denies nasal congestion or sore throat [] Respiratory: Denies cough or shortness of breath [] Cardiovascular: No additional information not addressed in HPI [] GI: Reports nausea vomiting and diarrhea, denies abdominal pain : Denies dysuria or hematuria [] Musculoskeletal: Denies back pain or joint pain [] Integument: Denies rash or skin lesions [] Neurologic: Denies headache, focal weakness or sensory changes [] All other systems were reviewed and found to be within normal limits, except as documented in this note. Current Medications Current Medications Current Medications Medications (Trade) Dose Ordered Sig/Juani Start Time Stop Time Status Last Admin Dose Admin Ondansetron HCl (Zofran) 4 mg 1X ONCE 03/31/17 19:00 03/31/17 19:01 DC 03/31/17 20:06 4 MG Sodium Chloride 1,000 ml @ 1,000 mls/hr 1X ONCE 03/31/17 19:00 03/31/17 19:59 DC 03/31/17 20:06 1,000 MLS/HR Allergies Allergies Allergies Coded Allergies Type Severity Reaction Last Updated Verified acetaminophen Allergy Intermediate Hives 09/20/14 Yes Physical Exam Physical Exam Constitutional: Well developed, well nourished, no acute distress, non-toxic appearance. [] HENT: Normocephalic, atraumatic, bilateral external ears normal, oropharynx moist, no oral exudates, nose normal. [] Eyes: PERRLA, EOMI, conjunctiva normal, no discharge. [] Neck: Normal range of motion, no tenderness, supple, no stridor. [] Cardiovascular:Heart rate regular rhythm, no murmur [] Lungs & Thorax: Bilateral breath sounds clear to auscultation [] Abdomen: Bowel sounds normal, soft, no tenderness, no masses, no pulsatile masses. Steri-Strips noted on the right upper quadrant as well as periumbilical region consistent with laparoscopy cholecystectomy. No signs of infection over a surgical site. Skin: Warm, dry, no erythema, no rash. [] Back: No tenderness, no CVA tenderness. [] Extremities: No tenderness, no cyanosis, no clubbing, ROM intact, no edema. [] Neurologic: Alert and oriented X 3, normal motor function, normal sensory function, no focal deficits noted. [] Psychologic: Affect normal, judgement normal, mood normal. [] Current Patient Data Vital Signs Vital Signs Date Time Temp Pulse Resp B/P (MAP) Pulse Ox O2 Delivery O2 Flow Rate FiO2 03/31/17 18:34 98.3 86 28 127/74 (91) 98 Room Air 98.3 Lab Values Laboratory Tests Test 03/31/17 18:34 03/31/17 18:43 03/31/17 19:27 Urine Collection Type Unknown Urine Color Yellow Urine Clarity Clear Urine pH 6.5 Urine Specific [place] 1.020 Urine Protein Negative mg/dL (NEG-TRACE) Urine Glucose (UA) Negative mg/dL (NEG) Urine Ketones (Stick) Negative mg/dL (NEG) Urine Blood Negative (NEG) Urine Nitrite Negative (NEG) Urine Bilirubin Negative (NEG) Urine Urobilinogen Dipstick 0.2 mg/dL (0.2 mg/dL) Urine Leukocyte Esterase Negative (NEG) Urine RBC 0 /HPF (0-2) Urine WBC Occ /HPF (0-4) Urine Squamous Epithelial Cells Few /LPF Urine Bacteria Few /HPF (0-FEW) Urine Mucus Mod /LPF POC Urine HCG, Qualitative Hcg negative (Negative) White Blood Count 8.9 x10^3/uL (4.0-11.0) Red Blood Count 4.51 x10^6/uL (3.50-5.40) Hemoglobin 12.2 g/dL (12.0-15.5) Hematocrit 37.5 % (36.0-47.0) Mean Corpuscular Volume 83 fL (79-100) Mean Corpuscular Hemoglobin 27 pg (25-35) Mean Corpuscular Hemoglobin Concent 33 g/dL (31-37) Red Cell Distribution Width 14.9 % (11.5-14.5) H Platelet Count 320 x10^3/uL (140-400) Neutrophils (%) (Auto) 71 % (31-73) Lymphocytes (%) (Auto) 19 % (24-48) L Monocytes (%) (Auto) 8 % (0-9) Eosinophils (%) (Auto) 1 % (0-3) Basophils (%) (Auto) 1 % (0-3) Neutrophils # (Auto) 6.3 x10^3uL (1.8-7.7) Lymphocytes # (Auto) 1.7 x10^3/uL (1.0-4.8) Monocytes # (Auto) 0.7 x10^3/uL (0.0-1.1) Eosinophils # (Auto) 0.1 x10^3/uL (0.0-0.7) Basophils # (Auto) 0.0 x10^3/uL (0.0-0.2) Sodium Level 139 mmol/L (136-145) Potassium Level 4.0 mmol/L (3.5-5.1) Chloride Level 104 mmol/L (98-107) Carbon Dioxide Level 27 mmol/L (21-32) Anion Gap 8 (6-14) Blood Urea Nitrogen 11 mg/dL (7-20) Creatinine 0.7 mg/dL (0.6-1.0) Estimated GFR (Cockcroft-Gault) 124.4 BUN/Creatinine Ratio 16 (6-20) Glucose Level 86 mg/dL (70-99) Calcium Level 9.0 mg/dL (8.5-10.1) Total Bilirubin 0.1 mg/dL (0.2-1.0) L Aspartate Amino Transferase (AST) 19 U/L (15-37) Alanine Aminotransferase (ALT) Pending Alkaline Phosphatase 65 U/L (46-116) Total Protein 7.3 g/dL (6.4-8.2) Albumin 3.3 g/dL (3.4-5.0) L Albumin/Globulin Ratio 0.8 (1.0-1.7) L Laboratory Tests 03/31/17 19:27 Laboratory Tests 03/31/17 19:27 EKG EKG [] Radiology/Procedures Radiology/Procedures [] Course & Med Decision Making Course & Med Decision Making Pertinent Labs and Imaging studies reviewed. (See chart for details) Patient is in the ED with complaints of nausea vomiting and diarrhea for 3 days. She had her gallbladder removed 6 days ago. Highly suspect her nausea vomiting and diarrhea probably viral. She appears very well. Patient's labs are negative for any acute findings. Her symptoms are likely viral. She was discharged with Zofran instructed to push fluids maintain good hand hygiene and follow-up with her own doctor in the next 7 days. Dragon Disclaimer Dragon Disclaimer This electronic medical record was generated, in whole or in part, using a voice recognition dictation system. Departure Departure Impression: Primary Impression: Nausea vomiting and diarrhea Disposition: 01 HOME, SELF-CARE Condition: STABLE Referrals: UNKNOWN PCP NAME (PCP) Follow-up with your doctor in the next 7 days Patient Instructions: Diarrhea, Nausea and Vomiting, [id number] Additional Instructions: You were seen with nausea vomiting and diarrhea. Your lab work is okay. Your symptoms are likely viral. Push fluids, maintain good hand hygiene. Follow-up with your doctor in the next 7 days. Return to the ED symptoms worsen. Scripts Ondansetron (ZOFRAN ODT) 4 Mg Tab.rapdis 1 TAB SL Q8HRS, #15 TAB Prov: SAIRA JACOBSON APRN 03/31/17 SAIRA JACOBSON APRN Mar 31, 2017 18:59
[2017-03-31] MEDS ORDERED: IV NORMAL SALINE 1000ML BAG 1,000 ML IV ONE (19:00)
[2017-03-31] MEDS ORDERED: ONDANSETRON PF 4 MG/2 ML VIAL. IV ONE (19:00)
[2017-03-31 19:26] LABS: BILIRUBIN,URINE NEGATIVE (NEG); GLUCOSE,URINE NEGATIVE (NEG); NITRITE,URINE NEGATIVE (NEG); PH,URINE 6.5; PROTEIN,URINE NEGATIVE (NEG-TRACE); UROBILINOGEN,URINE 0.2 mg/dL (0.2 mg/dL)
[2017-03-31 19:41] LABS: RBC,URINE 0 /HPF (0-2); WBC,URINE OCC /HPF (0-4)
[2017-03-31 19:42] LABS: BACTERIA,URINE FEW /HPF (0-FEW); SQUAMOUS EPITHELIAL CELL,UR FEW /LPF
[2017-03-31 20:01] LABS: BASO % 1 % (0-3); EOS % 1 % (0-3); HEMATOCRIT 37.5 % (36.0-47.0); HEMOGLOBIN 12.2 g/dL (12.0-15.5); LYMPH # 1.7 x10^3/uL (1.0-4.8); LYMPH % 19 % (24-48); MEAN CORPUSCULAR HEMOGLOBIN 27 pg (25-35); MEAN CORPUSCULAR HGB CONC 33 g/dL (31-37); MEAN CORPUSCULAR VOLUME 83 fL (79-100); MONO % 8 % (0-9); NEUT % 71 % (31-73); PLATELET COUNT 320 x10^3/uL (140-400); RED BLOOD COUNT 4.51 x10^6/uL (3.50-5.40); RED CELL DISTRIBUTION WIDTH 14.9 % (11.5-14.5); WHITE BLOOD COUNT 8.9 x10^3/uL (4.0-11.0)
[2017-03-31 20:13] LABS: CREATININE 0.7 mg/dL (0.6-1.0); GFR 124.4
[2017-03-31 20:19] LABS: ALBUMIN 3.3 g/dL (3.4-5.0); ALBUMIN/GLOBULIN RATIO 0.8 (1.0-1.7); TOTAL BILIRUBIN 0.1 mg/dL (0.2-1.0); TOTAL PROTEIN 7.3 g/dL (6.4-8.2)
[2017-03-31 20:30] VITALS: BP 124/63
[2017-03-31] MEDS ORDERED: ONDA4TAB10 SL (20:48)
== END 2017-03-31 20:57 | disposition home or self-care (01) ==
LOC: ER 17:50
DX: R11.2 Nausea with vomiting, unspecified (principal); R19.7 Diarrhea, unspecified; K21.9 Gastro-esophageal reflux disease without esophagitis; J45.909 Unspecified asthma, uncomplicated; Z88.6 Allergy status to analgesic agent
CPT/HCPCS: 36415; 80053; 81001; 81025; 85025; 96361; 96374; 99284; J2405; J7030

== ENCOUNTER 2017-10-05 19:37 | Emergency (ER) | payer OTHER ==
[2017-10-06 08:37] LABS: NEGATIVE OBC STREP NEG; POSITIVE OBC STREP POS
== END 2017-10-05 20:39 | disposition home or self-care (01) ==
LOC: ER 20:39
DX: J02.8 Acute pharyngitis due to other specified organisms (principal); B97.89 Other viral agents as the cause of diseases classified elsewhere; J45.909 Unspecified asthma, uncomplicated; K21.9 Gastro-esophageal reflux disease without esophagitis; Z88.6 Allergy status to analgesic agent
CPT/HCPCS: 87880; 99283

== ENCOUNTER 2017-10-19 20:57 | Emergency (ER) | payer OTHER ==
[2017-10-19 21:54] LABS: URINE HCG POC HCG NEGATIVE (Negative)
[2017-10-19 21:57] LABS: BILIRUBIN,URINE NEGATIVE (NEG); CLARITY,URINE CLEAR; COLOR,URINE YELLOW; GLUCOSE,URINE NEGATIVE (NEG); NITRITE,URINE NEGATIVE (NEG); PROTEIN,URINE NEGATIVE (NEG-TRACE); UROBILINOGEN,URINE 0.2 mg/dL (0.2 mg/dL)
[2017-10-19 22:05] LABS: BACTERIA,URINE FEW /HPF (0-FEW); RBC,URINE 0 /HPF (0-2); SQUAMOUS EPITHELIAL CELL,UR FEW /LPF; WBC,URINE OCC /HPF (0-4)
[2017-10-20 03:27] LABS: POC GLUCOSE 85 mg/dL (70-99)
== END 2017-10-19 22:55 | disposition home or self-care (01) ==
LOC: ER 22:55
DX: R35.0 Frequency of micturition (principal); K21.9 Gastro-esophageal reflux disease without esophagitis; J45.909 Unspecified asthma, uncomplicated; Z87.440 Personal history of urinary (tract) infections; Z90.49 Acquired absence of other specified parts of digestive tract; Z88.6 Allergy status to analgesic agent
CPT/HCPCS: 81001; 81025; 82962; 99284

== ENCOUNTER 2017-12-23 22:01 | Emergency (ER) | payer OTHER ==
[~2017-12-23] VITALS: Ht 154.9 cm; Wt 104.3 kg
[~2017-12-23 22:01] MED LIST changes: +CETI10TA22 PO; +PRED50TA PO; +[UNRECOGNIZED DRUG - CODE] PO
[2017-12-23 22:25] VITALS: BP 125/74
[2017-12-23] MEDS ORDERED: AMOX500C PO (23:34)
--- NOTE | 2017-12-23 23:34 | PHYS DOC ---
Past Medical History Past Medical History: Asthma, GERD, UTI Additional Past Medical Histor: carpal tunnel Past Surgical History: Cholecystectomy, Other Additional Past Surgical Histo: RIGHT ANKLE SURGERY - FRACTURE 2013 Alcohol Use: Occasionally Drug Use: None Adult General Chief Complaint Chief Complaint: EARACHE/EAR PAIN [facility] HPI Patient is a 22 year old female with a history of ear infections presents to the ED complaining of right ear pain 3 days ago. Describes the pain as sharp. Rates the pain as 7 out of 10. States she is taking ibuprofen at home without improvement. Associated symptoms include sore throat and congestion. Denies chest pain, shortness of breath, cough, headache, conjunctivitis, rash, vision changes, fever or weakness. Review of Systems Review of Systems Constitutional: Denies fever or chills [] Eyes: Denies change in visual acuity, redness, or eye pain [] HENT: Complains of ear pain, sore throat, and congestion. Respiratory: Denies cough or shortness of breath [] Cardiovascular: No additional information not addressed in HPI [] GI: Denies abdominal pain, nausea, vomiting, bloody stools or diarrhea [] : Denies dysuria or hematuria [] Musculoskeletal: Denies back pain or joint pain [] Integument: Denies rash or skin lesions [] Neurologic: Denies headache, focal weakness or sensory changes [] All other systems were reviewed and found to be within normal limits, except as documented in this note. Allergies Allergies Allergies Coded Allergies Type Severity Reaction Last Updated Verified acetaminophen Allergy Intermediate Hives 09/20/14 Yes Physical Exam Physical Exam Constitutional: Well developed, well nourished, no acute distress, non-toxic appearance. [] HENT: Normocephalic, atraumatic, oropharynx moist, no oral exudates, nose normal. MILD RIGHT TM ERYTHEMA AND BULGING. Eyes: PERRLA, EOMI, conjunctiva normal, no discharge. [] Neck: Normal range of motion, no tenderness, supple, no stridor. [] Cardiovascular:Heart rate regular rhythm, no murmur [] Lungs & Thorax: Bilateral breath sounds clear to auscultation [] Skin: Warm, dry, no erythema, no rash. [] Neurologic: Alert and oriented X 3, normal motor function, normal sensory function, no focal deficits noted. [] Psychologic: Affect normal, judgement normal, mood normal. [] Current Patient Data Vital Signs Vital Signs Date Time Temp Pulse Resp B/P (MAP) Pulse Ox O2 Delivery O2 Flow Rate FiO2 12/23/17 22:25 98.5 63 18 125/74 (91) 97 Room Air 98.5 EKG EKG [] Radiology/Procedures Radiology/Procedures [] Course & Med Decision Making Course & Med Decision Making Pertinent Labs and Imaging studies reviewed. (See chart for details) Attending physician attestation: I was working at the time of this patient's ER visit and was available for consultation, but did not personally interview, examine, or directly take part in the patient's care. DO Felipa Haas Disclaimer Dragon Disclaimer This electronic medical record was generated, in whole or in part, using a voice recognition dictation system. Departure Departure Impression: Primary Impression: Otitis media Disposition: 01 HOME, SELF-CARE Condition: IMPROVED Referrals: UNKNOWN PCP NAME (PCP) CHARLES XIONG MD Patient Instructions: Otitis Media, Adult Scripts Amoxicillin (AMOXICILLIN) 500 Mg Capsule 1 CAP PO TID for 7 Days, #21 CAP Prov: KSENIA VASQUEZ 12/23/17 KSENIA VASQUEZ Dec 23, 2017 23:34 LYRIC BRENNAN DO Dec 27, 2017 06:17
== END 2017-12-23 23:47 | disposition home or self-care (01) ==
LOC: ER 22:01
DX: H66.91 Otitis media, unspecified, right ear (principal); K21.9 Gastro-esophageal reflux disease without esophagitis; J45.909 Unspecified asthma, uncomplicated; Z88.6 Allergy status to analgesic agent
CPT/HCPCS: 99283

== ENCOUNTER 2018-01-17 22:34 | Emergency (ER) | payer OTHER, BC ==
[~2018-01-17] VITALS: Ht 157.5 cm; Wt 108.9 kg
[~2018-01-17 22:34] MED LIST changes: +AMOX500C PO
[2018-01-17] MEDS ORDERED: FLUORESCEIN OPHTH TEST STRIP. OS ONE (23:45)
[2018-01-17] MEDS ORDERED: TETRACAINE 0.5% OPHTH SOLUTION 4ML BOTTLE. OS ONE (23:45)
[2018-01-17 23:48] VITALS: BP 144/89
[2018-01-18] MEDS ORDERED: OFLO5DRO OS (00:19)
--- NOTE | 2018-01-18 00:20 | PHYS DOC ---
Past Medical History Past Medical History: No Pertinent History Additional Past Medical Histor: carpal tunnel Past Surgical History: No Surgical History Additional Past Surgical Histo: RIGHT ANKLE SURGERY - FRACTURE 2013 Alcohol Use: None Drug Use: None Adult General Chief Complaint Chief Complaint: EYE PROBLEMS HPI HPI Patient is a 22 year old [f__sex] who presents with [] Review of Systems Review of Systems Constitutional: Denies fever or chills [] Eyes: Denies change in visual acuity, redness, or eye pain [] HENT: Denies nasal congestion or sore throat [] Respiratory: Denies cough or shortness of breath [] Cardiovascular: No additional information not addressed in HPI [] GI: Denies abdominal pain, nausea, vomiting, bloody stools or diarrhea [] : Denies dysuria or hematuria [] Musculoskeletal: Denies back pain or joint pain [] Integument: Denies rash or skin lesions [] Neurologic: Denies headache, focal weakness or sensory changes [] Endocrine: Denies polyuria or polydipsia [] All other systems were reviewed and found to be within normal limits, except as documented in this note. Current Medications Current Medications Current Medications Medications (Trade) Dose Ordered Sig/Juani Start Time Stop Time Status Last Admin Dose Admin Fluorescein Sodium (Ful-Natalia) 1 strip 1X ONCE 01/17/18 23:45 01/17/18 23:46 DC Tetracaine HCl (Tetracaine) 1 drop 1X ONCE 01/17/18 23:45 01/17/18 23:46 DC Allergies Allergies Allergies Coded Allergies Type Severity Reaction Last Updated Verified acetaminophen Allergy Intermediate Hives 09/20/14 Yes Physical Exam Physical Exam Constitutional: Well developed, well nourished, no acute distress, non-toxic appearance. [] HENT: Normocephalic, atraumatic, bilateral external ears normal, oropharynx moist, no oral exudates, nose normal. [] Eyes: PERRLA, EOMI, conjunctiva normal, no discharge. [] Neck: Normal range of motion, no tenderness, supple, no stridor. [] Cardiovascular:Heart rate regular rhythm, no murmur [] Lungs & Thorax: Bilateral breath sounds clear to auscultation [] Abdomen: Bowel sounds normal, soft, no tenderness, no masses, no pulsatile masses. [] Skin: Warm, dry, no erythema, no rash. [] Back: No tenderness, no CVA tenderness. [] Extremities: No tenderness, no cyanosis, no clubbing, ROM intact, no edema. [] Neurologic: Alert and oriented X 3, normal motor function, normal sensory function, no focal deficits noted. [] Psychologic: Affect normal, judgement normal, mood normal. [] Current Patient Data Vital Signs Vital Signs Date Time Temp Pulse Resp B/P (MAP) Pulse Ox O2 Delivery O2 Flow Rate FiO2 01/17/18 23:48 97.8 78 20 144/89 (107) Room Air 97.8 EKG EKG [] Radiology/Procedures Radiology/Procedures [] Course & Med Decision Making Course & Med Decision Making Pertinent Labs and Imaging studies reviewed. (See chart for details) [] Dragon Disclaimer Dragon Disclaimer This electronic medical record was generated, in whole or in part, using a voice recognition dictation system. Departure Departure Impression: Primary Impression: Corneal abrasion Disposition: HOME, SELF-CARE Condition: STABLE Referrals: DAMIAN PARKER (PCP) Patient Instructions: Eye - Corneal Abrasion Additional Instructions: Use the eyedrops as directed. 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 If worsening please return to the emergency department. Scripts Ofloxacin (OCUFLOX) 5 Ml Drops 1-2 DROP OS BID, #1 BOTTLE Prov: LINDSAY GAMEZ APRN 01/18/18 LINDSAY GAMEZ APRN Jan 18, 2018 00:20
== END 2018-01-18 00:15 | disposition home or self-care (01) ==
LOC: ER 22:34
DX: S05.02XA Injury of conjunctiva and corneal abrasion without foreign body, left eye, initial encounter (principal); X58.XXXA Exposure to other specified factors, initial encounter; Y93.89 Activity, other specified; Y92.89 Other specified places as the place of occurrence of the external cause; Y99.8 Other external cause status
CPT/HCPCS: 99283

== ENCOUNTER 2018-02-09 18:45 | Emergency (ER) | payer BC, OTHER ==
[~2018-02-09] VITALS: Ht 160 cm; Wt 108.9 kg
[~2018-02-09 18:45] MED LIST changes: +OFLO5DRO OS
[2018-02-09 19:23] VITALS: BP 148/84
--- NOTE | 2018-02-09 20:25 | PHYS DOC ---
Past Medical History Past Medical History: Asthma Additional Past Medical Histor: carpal tunnel Past Surgical History: No Surgical History, Cholecystectomy Additional Past Surgical Histo: RIGHT ANKLE SURGERY - FRACTURE 2013 Alcohol Use: None Drug Use: None Adult General Chief Complaint Chief Complaint: SORE THROAT HPI HPI Patient is a 23 year old AA female who presents to the emergency room with complaints of a sore throat, postnasal drainage for the last 4-5 days. She states that where she works everyone has been getting a cold lately with sore throat cough symptoms she reports concern that she has strep pharyngitis. States that she usually has problems with strep throat at least once a year. Patient denies any fever today states that she had a low-grade temperature of 100 on Friday. She denies any nausea, vomiting, diarrhea, abdominal pain, back pain, chest pain, or shortness of breath at this time. Review of Systems Review of Systems Constitutional: Denies fever or chills [] Eyes: Denies change in visual acuity, redness, or eye pain [] HENT: Reports nasal congestion, postnasal drainage, and sore throat [] Respiratory: Denies cough or shortness of breath [] GI: Denies abdominal pain, nausea, vomiting, or diarrhea [] Musculoskeletal: Denies back pain or joint pain [] Integument: Denies rash or skin lesions [] Neurologic: Denies headache, focal weakness or sensory changes [] All other systems were reviewed and found to be within normal limits, except as documented in this note. Allergies Allergies Allergies Coded Allergies Type Severity Reaction Last Updated Verified acetaminophen Allergy Intermediate Hives 09/20/14 Yes Physical Exam Physical Exam Constitutional: Well developed, well nourished, no acute distress, non-toxic appearance obese. [] HENT: Normocephalic, atraumatic, bilateral external ears normal, cobblestone appearance of posterior pharynx, mild erythema of posterior pharynx, 1+ tonsils bilaterally, oropharynx moist, no oral exudates, nose normal. [] Eyes: PERRLA, conjunctiva normal, no discharge. [] Neck: Normal range of motion, no tenderness, supple, no stridor. [] Cardiovascular:Heart rate regular rhythm, no murmur [] Lungs & Thorax: Bilateral breath sounds clear to auscultation [] Skin: Warm, dry, no erythema, no rash. [] Extremities: No cyanosis, no clubbing, ROM intact, no edema. [] Neurologic: Alert and oriented X 3, normal motor function, normal sensory function, no focal deficits noted. [] Psychologic: Affect normal, judgement normal, mood normal. [] Current Patient Data Vital Signs Vital Signs Date Time Temp Pulse Resp B/P (MAP) Pulse Ox O2 Delivery O2 Flow Rate FiO2 02/09/18 19:23 98.4 85 18 148/84 (105) 99 Room Air 98.4 Lab Values Laboratory Tests Test 02/09/18 19:14 Group A Streptococcus Rapid Negative (NEGATIVE) Microbiology 02/09/18 Throat Culture - Final, Complete 02/09/18 - Final, Complete EKG EKG [] Radiology/Procedures Radiology/Procedures [] Course & Med Decision Making Course & Med Decision Making Pertinent Labs and Imaging studies reviewed. (See chart for details) dx: URI, allergic rhinitis Patient was instructed to use her Flonase nasal spray 2 sprays each Vasquez in the morning, increase clear fluids, and use a cool mist humidifier in her room at night. May take jqok-dis-yowjwot cough suppressants if needed. Follow-up with primary care doctor in 1-2 days if symptoms persist. Return to the ER symptoms worsen.Patient verbalized an understanding of home care, medications, follow-up , and return to ED instructions and was in agreement with the plan of care. [] Dragon Disclaimer Dragon Disclaimer This electronic medical record was generated, in whole or in part, using a voice recognition dictation system. Departure Departure Impression: Primary Impression: URI (upper respiratory infection) Additional Impressions: Allergic rhinitis Viral pharyngitis Disposition: HOME, SELF-CARE Condition: STABLE Referrals: DAMIAN PARKER (PCP) Patient Instructions: Allergic Rhinitis, Viral and Bacterial Pharyngitis, Easy- to-Read Additional Instructions: OTC Flonase 2 sprays each nare daily. Warm salt water gargles as needed for throat discomfort. Cool mist humidifier in room at bedtime. Tylenol or ibuprofen prn pain/fever. Increase clear fluids. Avoid triggers such as smoke, fragrance, dust, and pollen. May take OTC cough suppressants as needed. Follow-up with your primary care doctor as needed. Attending Signature Attending Signature I have reviewed the PA/BI TECHNICAL LEAD's note and plan of care. I was available for consultation as needed during the patient's visit in the emergency department. I agree with the clinical impression, plan, and disposition. Problem Qualifiers Primary Impression: URI (upper respiratory infection) URI type: unspecified URI Qualified Codes: J06.9 - Acute upper respiratory infection, unspecified Additional Impressions: Allergic rhinitis Allergic rhinitis trigger: unspecified Allergic rhinitis seasonality: unspecified Qualified Codes: J30.9 - Allergic rhinitis, unspecified HEENA NELSON APRN Feb 09, 2018 20:25 STELLA MCKEON DO Feb 13, 2018 15:43
== END 2018-02-09 20:28 | disposition home or self-care (01) ==
LOC: ER 18:45
DX: J02.0 Streptococcal pharyngitis (principal); J30.9 Allergic rhinitis, unspecified; Z90.49 Acquired absence of other specified parts of digestive tract; Z88.6 Allergy status to analgesic agent
CPT/HCPCS: 87070; 87880; 99283

== ENCOUNTER 2018-04-25 09:18 | Emergency (ER) | payer BC ==
[~2018-04-25] VITALS: Ht 157.5 cm; Wt 104.3 kg
[~2018-04-25 09:18] MED LIST changes: +ALBU2.5V8 INH; -PROAIR HFA8.5 GM INH
--- NOTE | 2018-04-25 09:52 | PHYS DOC ---
Past Medical History Past Medical History: Asthma, Pneumonia, Other Additional Past Medical Histor: carpal tunnel Past Surgical History: Cholecystectomy, Other Additional Past Surgical Histo: RIGHT ANKLE SURGERY - FRACTURE 2013 Alcohol Use: None Drug Use: None Adult General Chief Complaint Chief Complaint: ASTHMA HPI HPI 23-year-old female presents to ER via POV with complaints of sneezing and coughing episodes since . Patient reports she has history of asthma and has been using her rescue inhaler more frequently in the past couple of days. Patient states she did nebulizer treatment at 3 AM today. Patient reports she has had productive cough with some yellow phlegm over the past few days denies fever or chills, fatigue, chest pain, or other cold-like symptoms. Patient reports people at work have had cold-like symptoms. Patient denies any nausea or vomiting or flulike illness. Patient states she did take her Zyrtec for her seasonal allergies today. She denies any smoking history or recent travel. Review of Systems Review of Systems Constitutional: Denies fever or chills. Denies fatigue Eyes: Denies change in visual acuity, redness, or eye pain [] HENT: Denies sore throat. Reports sinus congestion with headache. Denies dizziness/earache Respiratory: Denies shortness of breath. She reports productive cough Cardiovascular: No additional information not addressed in HPI [] GI: Denies abdominal pain, nausea, vomiting, bloody stools or diarrhea [] : Denies dysuria or hematuria [] Musculoskeletal: Denies joint pain. Reports mid back pain which increases during coughing episodes Integument: Denies rash or skin lesions [] Neurologic: Denies focal weakness or sensory changes [] All other systems were reviewed and found to be within normal limits, except as documented in this note. Current Medications Current Medications Current Medications Medications (Trade) Dose Ordered Sig/Juani Start Time Stop Time Status Last Admin Dose Admin Albuterol/ Ipratropium (Duoneb) 3 ml 1X ONCE 04/25/18 10:00 04/25/18 10:01 DC 04/25/18 10:03 3 ML Prednisone (Prednisone) 50 mg 1X ONCE 04/25/18 10:00 04/25/18 10:01 DC 04/25/18 10:56 50 MG Allergies Allergies Allergies Coded Allergies Type Severity Reaction Last Updated Verified acetaminophen Allergy Intermediate Hives 09/20/14 Yes Physical Exam Physical Exam Constitutional: Well developed, well nourished, no acute distress, non-toxic appearance. Speaking in full sentences HENT: Normocephalic, atraumatic, bilateral ears normal, oropharynx moist, no oral exudates-no pharyngeal or tonsillar swelling or erythema, nose normal. No facial swelling. Tenderness in maxillary sinuses Eyes: Pupils equal, conjunctiva normal, no discharge. [] Neck: Normal range of motion, no tenderness, supple, no stridor. [] Cardiovascular: Heart rate regular rhythm, no murmur [] Lungs & Thorax: Bilateral breath sounds clear to auscultation-diminished air movement in all lung grubbs. No wheezing or rhonchi. Resp. equal/nonlabored Skin: Warm, dry, no erythema, no rash. [] Back: No tenderness, no CVA tenderness. [] Extremities: No tenderness, no cyanosis, no clubbing, ROM intact, no edema. [] Neurologic: Alert and oriented X 3, normal motor function, normal sensory function, no focal deficits noted. [] Psychologic: Affect normal, judgement normal, mood normal. [] Current Patient Data Vital Signs Vital Signs Date Time Temp Pulse Resp B/P (MAP) Pulse Ox O2 Delivery O2 Flow Rate FiO2 04/25/18 10:04 Room Air 04/25/18 09:25 97.8 76 20 148/93 (111) 99 97.8 EKG EKG [] Radiology/Procedures Radiology/Procedures [] Course & Med Decision Making Course & Med Decision Making 1115: Patient has remained stable while in the ER and on reexamination is in no visible distress reporting symptoms have improved following dose of oral prednisone and DuoNeb treatment. On reexam patient has increased air movement throughout all lung grubbs with no wheezing or rhonchi. Respirations are equal and nonlabored. Patient is speaking in full sentences. No testing done and patient is comfortable with this- heart rate and O2 sat normal limits. Patient did have slight elevation in blood pressure while in the ER at 135/92. Discussed she should have follow-up with primary care physician in next 5-7 days for recheck of blood pressure with no previous history. Discussed plans for home discharge with Rx for prednisone to start tomorrow. Pt to continue use of nebulizer and inhalers as prescribed. Discussed if symptoms persist or with concerns patient to follow-up with primary care physician for reevaluation. Education provided on signs and symptoms to return to ER for an discharge instructions were discussed. [] Dragon Disclaimer Dragon Disclaimer This electronic medical record was generated, in whole or in part, using a voice recognition dictation system. Departure Departure Impression: Primary Impression: Asthma Disposition: HOME, SELF-CARE Condition: STABLE Patient Instructions: Asthma, Adult Additional Instructions: Drink plenty of fluids. Continue use of nebulizer and inhalers as prescribed. If symptoms persist follow-up with primary care physician for reevaluation and further care. Scripts Prednisone (PREDNISONE) 50 Mg Tablet 50 MG PO DAILY, #4 TAB 0 Refills Start on 04/26/18 Prov: LANG MCLEOD APRN 04/25/18 LANG MCLEOD APRN Apr 25, 2018 09:52
[2018-04-25] MEDS ORDERED: IPRATRPIUM/ALBUTEROL 0.5/2.5MG 3 ML NEBU. NEB ONE (10:00)
[2018-04-25] MEDS ORDERED: predniSONE 10 MG TABLET PO ONE (10:00)
[2018-04-25] MEDS ORDERED: PRED50TA PO (11:25)
[2018-04-25 11:33] VITALS: BP 143/87
== END 2018-04-25 11:33 | disposition home or self-care (01) ==
LOC: ER 09:18
DX: J45.909 Unspecified asthma, uncomplicated (principal); Z88.6 Allergy status to analgesic agent
CPT/HCPCS: 94640; 99283; J7512; J7620

== ENCOUNTER 2019-03-06 12:20 | Emergency (ER) | payer BC ==
[~2019-03-06] VITALS: Ht 157.5 cm; Wt 104.3 kg
[~2019-03-06 12:20] MED LIST changes: +MONT10TA49 PO; -MONT10TA6 PO
--- NOTE | 2019-03-06 12:47 | PHYS DOC ---
Past Medical History Past Medical History: Asthma, Pneumonia, Other Additional Past Medical Histor: carpal tunnel (SAIRA JACOBSON APRN) Past Surgical History: Cholecystectomy, Other Additional Past Surgical Histo: RIGHT ANKLE SURGERY - FRACTURE 2013 (SAIRA JACOBSON APRN) Alcohol Use: Occasionally Drug Use: None (SAIRA JACOBSON APRN) Adult General Chief Complaint Chief Complaint: COUGH HPI HPI Patient is a 24 year old female with history of asthma who presents to the ED today complaining of a cough with SOA due to her asthma for the last 1 week. Patient states she has tried using her inhaler with no relief. Denies any fever. (SAIRA JACOBSON APRN) Review of Systems Review of Systems Constitutional: Denies fever or chills [] Eyes: Denies change in visual acuity, redness, or eye pain [] HENT: Denies nasal congestion or sore throat [] Respiratory: Reports cough and shortness of breath [] Cardiovascular: No additional information not addressed in HPI [] GI: Denies abdominal pain, nausea, vomiting, bloody stools or diarrhea [] : Denies dysuria or hematuria [] Musculoskeletal: Denies back pain or joint pain [] Integument: Denies rash or skin lesions [] Neurologic: Denies headache, focal weakness or sensory changes [] All other systems were reviewed and found to be within normal limits, except as documented in this note. (SAIRA JACOBSON APRN) Current Medications Current Medications Current Medications Medications (Trade) Dose Ordered Sig/Juani Start Time Stop Time Status Last Admin Dose Admin Albuterol/ Ipratropium (Duoneb) 3 ml 1X ONCE 03/06/19 13:00 03/06/19 13:01 DC 03/06/19 12:52 3 ML Prednisone (Prednisone) 50 mg 1X ONCE 03/06/19 13:00 03/06/19 13:01 DC 03/06/19 12:50 50 MG (ZE AVILA MD) Allergies Allergies Allergies Coded Allergies Type Severity Reaction Last Updated Verified acetaminophen Allergy Intermediate Hives 09/20/14 Yes (ZE AVILA MD) Physical Exam Physical Exam Constitutional: Well developed, well nourished, no acute distress, non-toxic appearance. [] HENT: Normocephalic, atraumatic, bilateral external ears normal, oropharynx moist, no oral exudates, nose normal. [] Eyes: PERRLA, EOMI, conjunctiva normal, no discharge. [] Neck: Normal range of motion, no tenderness, supple, no stridor. [] Cardiovascular:Heart rate regular rhythm, no murmur [] Lungs & Thorax: Bilateral breath sounds clear to auscultation [] Abdomen: Bowel sounds normal, soft, no tenderness, no masses, no pulsatile masses. [] Skin: Warm, dry, no erythema, no rash. [] Back: No tenderness, no CVA tenderness. [] Extremities: No tenderness, no cyanosis, no clubbing, ROM intact, no edema. [] Neurologic: Alert and oriented X 3, normal motor function, normal sensory function, no focal deficits noted. [] Psychologic: Affect normal, judgement normal, mood normal. [] (SAIRA JACOBSON APRN) Current Patient Data Vital Signs Vital Signs Date Time Temp Pulse Resp B/P (MAP) Pulse Ox O2 Delivery O2 Flow Rate FiO2 03/06/19 13:40 92 18 116/78 (91) 99 Room Air 03/06/19 12:27 97.9 97.9 (ZE AVILA MD) EKG EKG [] (SAIRA JACOBSON APRN) Radiology/Procedures Radiology/Procedures []PROCEDURE: CHEST PA & LATERAL Chest radiograph 03/06/2019 12:32 PM INDICATION: Cough, shortness of air COMPARISON: 07/27/2016 TECHNIQUE: Frontal and lateral views of the chest are provided. FINDINGS: The cardiomediastinal silhouette is within normal limits. There are no pleural effusions. There is no pulmonary vascular congestion. There is no pneumothorax. The lungs are clear. No significant osseous abnormality is identified. IMPRESSION: No acute cardiopulmonary process. Electronically signed by: Jordyn Whitlock MD (03/06/2019 1:10 PM) [facility] DICTATED and SIGNED BY: JORDYN WHITLOCK MD DATE: 03/06/19 1310 (SAIRA JACOBSON APRN) Course & Med Decision Making Course & Med Decision Making Pertinent Labs and Imaging studies reviewed. (See chart for details) This is a 24-year-old female patient with history of asthma presenting to the ED today with a cough or shortness of breath for one week. Chest x-ray is negative, O2 sats above 97% on room air. Patient was given a DuoNeb treatment and started on prednisone. Gave her prescription for albuterol inhaler and prednisone. Encouraged follow-up with the PCP in one week. (SAIRA JACOBSON APRN) Course & Med Decision Making Staff Physician Addendum: I was working in the ER during the course of this patient's visit. I was available for consultation as needed, but I was not directly involved in the care of this patient. (ZE AVILA MD) Dragon Disclaimer Dragon Disclaimer This electronic medical record was generated, in whole or in part, using a voice recognition dictation system. (SAIRA JACOBSON APRN) Departure Departure Impression: Primary Impression: Asthma Disposition: HOME, SELF-CARE Condition: STABLE Referrals: UNKNOWN PCP NAME (PCP) follow up next week Patient Instructions: Asthma, Adult Additional Instructions: You were evaluated in the emergency room for asthma symptoms. Take the prescribed medications as ordered. Follow-up with your own doctor in the course of this week or next week. Scripts Prednisone (PREDNISONE) 50 Mg Tablet 1 TAB PO DAILY, #4 TAB Prov: SAIRA JACOBSON APRN 03/06/19 Albuterol Sulfate (ALBUTEROL SULFATE NEB SOLN) 1.25 Mg/3 Ml Vial.neb 1 VIAL NEB Q4HRS, #150 ML Prov: SAIRA JACOBSON APRN 03/06/19 Albuterol Sulfate (Proair Hfa) 8.5 Gm Hfa.aer.ad 2 PUFF IH PRN Q4-6HRS PRN for wheezing for 21 Days, #1 INHALER 0 Refills Prov: SAIRA JACOBSON APRN 03/06/19 Problem Qualifiers Primary Impression: Asthma Asthma severity: mild Asthma persistence: intermittent Asthma complication type: uncomplicated Qualified Codes: J45.20 - Mild interm ittent asthma, uncomplicated SAIRA JACOBSON APRN Mar 06, 2019 12:47 ZE AVILA MD Mar 06, 2019 13:55
[2019-03-06] MEDS ORDERED: predniSONE 10 MG TABLET PO ONE (13:00)
[2019-03-06] MEDS ORDERED: IPRATRPIUM/ALBUTEROL 0.5/2.5MG 3 ML NEBU. NEB ONE (13:00)
--- NOTE | 2019-03-06 13:13 | RAD ---
Chest radiograph 03/06/2019 12:32 PM INDICATION: Cough, shortness of air COMPARISON: 07/27/2016 TECHNIQUE: Frontal and lateral views of the chest are provided. FINDINGS: The cardiomediastinal silhouette is within normal limits. There are no pleural effusions. There is no pulmonary vascular congestion. There is no pneumothorax. The lungs are clear. No significant osseous abnormality is identified. IMPRESSION: No acute cardiopulmonary process. Electronically signed by: Nevaeh Espinoza MD (03/06/2019 1:10 PM) [facility]
[2019-03-06] MEDS ORDERED: ALBU1.25 NEB (13:21)
[2019-03-06] MEDS ORDERED: ALBU2.5V8 IH (13:21)
[2019-03-06] MEDS ORDERED: PRED50TA PO (13:21)
[2019-03-06 13:40] VITALS: BP 116/78
== END 2019-03-06 13:52 | disposition home or self-care (01) ==
LOC: ER 12:20
DX: J45.20 Mild intermittent asthma, uncomplicated (principal); Z88.6 Allergy status to analgesic agent
CPT/HCPCS: 71046; 94640; 99284; J7512; J7620